=== PATIENT | male | born 1975 | race Caucasian/White ===

== ENCOUNTER 2022-12-06 00:58 | Emergency (ER) | payer BC ==
[~2022-12-06] VITALS: Ht 170.2 cm; Wt 104.3 kg
[2022-12-06 00:58] VITALS: BP 137/77; PULSE 112; RESP 16; TEMP 96.8; O2SAT 98
[2022-12-06] MEDS ORDERED: LIDOCAINE 1% 500 MG/ 50 ML VIAL INJ ONE (01:10)
[2022-12-06 02:35] VITALS: BP 137/77; PULSE 112; RESP 16; TEMP 96.8; O2SAT 98
== END 2022-12-06 02:33 | disposition home or self-care (01) ==
LOC: MED 00:58
DX: S02.2XXA Fracture of nasal bones, initial encounter for closed fracture (principal); W18.30XA Fall on same level, unspecified, initial encounter; Y93.89 Activity, other specified; Y92.89 Other specified places as the place of occurrence of the external cause; Y99.8 Other external cause status
CPT/HCPCS: 70450; 70486; 99284